=== PATIENT | female | born 1980 | race Caucasian/White ===

== ENCOUNTER 2016-11-23 23:40 | Outpatient (CLI) | payer SELFPAY ==
[~2016-11-23 23:40] MED LIST: FEOSOL-DPS325 MG PO; MOTRIN-DPS800 MG PO; PRENATAL VIT1 TAB PO; TYLENOL #3 DPS1 TAB PO
== END 2016-11-24 02:45 | disposition home or self-care (01) ==
LOC: BC 23:40 → 2LDRP 11-24 01:02 → BC 11-24 02:45
DX: O47.03 False labor before 37 completed weeks of gestation, third trimester (principal); Z3A.32 32 weeks gestation of pregnancy